=== PATIENT | female | born 1975 | race Caucasian/White ===

== ENCOUNTER 2024-01-15 17:29 | Emergency (ER) | payer SELFPAY ==
[2024-01-15 17:37] VITALS: BP 165/109; PULSE 80; RESP 15; TEMP 36.5; O2SAT 100; BMI 35.2
--- NOTE | 2024-01-15 17:57 | CTR_ITS ---
PROCEDURE INFORMATION: Exam: CT Abdomen And Pelvis Without Contrast Exam date and time: 01/15/2024 6:17 PM Age: 48 years old Clinical indication: Abdominal pain; Patient HX: C/O left flank pain TECHNIQUE: Imaging protocol: Computed tomography of the abdomen and pelvis without contrast. Radiation optimization: All CT scans at this facility use at least one of these dose optimization techniques: automated exposure control; mA and/or kV adjustment per patient size (includes targeted exams where dose is matched to clinical indication); or iterative reconstruction. COMPARISON: No relevant prior studies available. RADIATION DOSE METRICS: Total DLP (mGy-cm): 709.73 FINDINGS: Liver: Normal. No mass. Gallbladder and biliary ducts: Cholelithiasis. Pancreas: Normal. No ductal dilation. Spleen: Normal. No splenomegaly. Adrenal glands: Normal. No mass. Kidneys and ureters: 4 mm nonobstructing calculus in the left kidney. No hydronephrosis. Stomach and bowel: Colonic diverticulosis without acute diverticulitis. No evidence of bowel obstruction. Appendix: No evidence of appendicitis. Intraperitoneal space: Unremarkable. No free air. No significant fluid collection. Vasculature: Mild atherosclerotic calcifications of the abdominal aorta and its branch vessels. No aortic aneurysm. Lymph nodes: Unremarkable. No enlarged lymph nodes. Urinary bladder: Unremarkable as visualized. Reproductive: Complex cystic mass in the pelvis measuring 10.5 x 14.6 x 14.2 cm with thin internal septations. This appears to have an adnexal origin, likely from the left adnexa. However, this structure also abuts the right ovary. There is mass effect on surrounding bowel loops with displacement. Bones/joints: Unremarkable. No acute fracture. Soft tissues: Small fat containing umbilical hernia. CT/CT kidney stone [id number] IMPRESSION: 1. 4 mm nonobstructing left nephrolithiasis. No obstructive uropathy. 2. Complex cystic pelvic mass with thin internal septations likely arises from the left adnexa. Findings are most compatible with a cystic ovarian neoplasm such as a serous cystadenoma. However, further assessment with nonemergent pelvic ultrasound and/or MRI pelvis without and with contrast is recommended to further characterize this lesion. 3. Colonic diverticulosis without acute diverticulitis. 4. Cholelithiasis without CT evidence of acute cholecystitis.
--- NOTE | 2024-01-15 18:01 | ED_ITS ---
HPI - Abdominal Pain 2 General: Chief Complaint: Abdominal Pain Stated Complaint: left side pain Time Seen by Provider: 01/15/24 17:57 History of Present Illness: 48-year-old female comes in today for co mplaints of left flank pain. On exam patient appears nontoxic. Patient denies any chronic medical problems. Patient appears in mild to moderate pain. Patient does report a history of prior renal calculi. Patient reports C-sections and tubal ligation. Related Data Previous Rx's Medication Instructions Recorded ketorolac 10 mg tablet 10 mg PO Q8H PRN pain #10 tabs 01/15/24 Allergies Allergy/AdvReac Type Severity Reaction Status Date / Time acetaminophen [From Vicodin] Allergy ADR-Nausea Verified 01/15/24 17:42 codeine Allergy ADR-Shakine Verified 01/15/24 17:42 ss hydrocodone [From Vicodin] Allergy ADR-Nausea Verified 01/15/24 17:42 Review of Systems 2 General: Reports: 10 or more systems reviewed and unremarkable except in HPI and below Physical Exam 2 Const: COMMON NORMALS: alert HENMT: COMMON NORMALS: normocephalic HEAD & SCALP: normocephalic Neck/C-Spine: COMMON NORMALS: full ROM Resp: COMMON NORMALS: normal respiratory effort and clear to auscultation bilaterally AUSCULTATION: clear to auscultation bilaterally Cardio: COMMON NORMALS: regular rate RATE: regular rate GI: PALPATION: Yes Tenderness to palpation present (GI) Details: LLQ : COMMON NORMALS: Yes no CVA tenderness BLADDER/KIDNEY EXAM: Yes no CVA tenderness Back/Pelvis: COMMON NORMALS: no CVA tenderness and thoracic and lumbar spine normal to inspection Extremity: COMMON NORMALS: full ROM Neuro: SENSORIUM/ORIENTATION: Yes alert Skin: COMMON NORMALS: turgor normal GENERAL SKIN EXAM: turgor normal Course 2 Vital Signs: Vital signs: Vital Signs Temperature 97.7 F 01/15/24 17:37 Pulse Rate 75 01/15/24 21:13 Respiratory Rate 18 01/15/24 21:13 Blood Pressure 169/102 01/15/24 21:13 Pulse Oximetry 100 01/15/24 21:13 Oxygen Delivery Me thod Room Air 01/15/24 21:13 MDM - Abdominal Pain Medical Decision Making 48-year-old female comes in today for complaints of left upper quadrant abdominal pain. On exam patient appears nontoxic. Patient appears in no acute distress. Respirations are even lungs are clear to auscultation. Abdomen soft with some left upper quadrant tenderness. No CVA tenderness. Differential diagnosis includes renal calculi, diverticulitis, constipation, gastritis, colitis. CBC and CMP were unremarkable. Urinalysis was unremarkable. CT of the abdomen pelvis noted some diverticulosis and a large ovarian cystic mass. Reviewed exam with patient with recommendation for treatment for diverticular pain versus pain secondary to ovarian cystic mass. Patient was started on some Toradol to help with her pain. Patient was encouraged drink plenty water and fluids use ice or heat for further pain relief. Case management was requested to help patient follow-up with [facility] for further evaluation of mass on the right ovary. Patient reported understanding of care plan and need for follow-up or return to the ER. Lab Data 01/15/24 18:13 01/15/24 18:13 Labs/Radiology: Radiology Impressions Abdomen/Pelvis CT 01/15/24 17:57 IMPRESSION: 1. 4 mm nonobstructing left nephrolithiasis. No obstructive uropathy. 2. Complex cystic pelvic mass with thin internal septations likely arises from the left adnexa. Findings are most compatible with a cystic ovarian neoplasm such as a serous cystadenoma. However, further assessment with nonemergent pelvic ultrasound and/or MRI pelvis without and with contrast is recommended to further characterize this lesion. 3. Colonic diverticulosis without acute diverticulitis. 4. Cholelithiasis without CT evidence of acute cholecystitis. Laboratory Results WBC 8.54 10^3/uL (3.29-11.43) 01/15/24 18:13 RBC 5.42 10^6/uL (3.85-5.65) 01/15/24 18:13 Hgb 15.20 g/dL (11.27-16.99) 01/15/24 18:13 Hct 45.7 % (36-47) 01/15/24 18:13 MCV 84.3 fl (85-98) L 01/15/24 18:13 MCH 28.0 pg (27-33) 01/15/24 18:13 MCHC 33.3 g/dL (30-55) 01/15/24 18:13 RDW 14.3 % (12.1-15.1) 01/15/24 18:13 Plt Count 286 10^3/cmm (157-399) 01/15/24 18:13 MPV 10.4 fL (7.4-10.4) 01/15/24 18:13 Neut % (Auto) 84.4 % 01/15/24 18:13 Lymph % (Auto) 12.4 % 01/15/24 18:13 [place] % (Auto) 2.0 % 01/15/24 18:13 Eos % (Auto) 0.1 % 01/15/24 18:13 Baso % (Auto) 0.6 % 01/15/24 18:13 Neut # (Auto) 7.21 10^3/uL (1.8-7.7) 01/15/24 18:13 Lymph # (Auto) 1.1 10^3/uL (0.8-4.8) 01/15/24 18:13 [place] # (Auto) 0.2 10^3/uL (0.2-0.9) 01/15/24 18:13 Eos # (Auto) 0.0 10^3/uL (0.0-0.8) 01/15/24 18:13 Baso # (Auto) 0.1 10^3/uL (0.0-0.1) 01/15/24 18:13 Nucleated RBC % (auto) 0 % 01/15/24 18:13 Nucleated RBCs # 0.0 /100WBC 01/15/24 18:13 Sodium 134 mmol/L (136-145) L 01/15/24 18:13 Potassium 4.2 mmol/L (3.5-5.1) 01/15/24 18:13 Chloride 99 mmol/L (98-107) 01/15/24 18:13 Carbon Dioxide 25 mmol/L (22-29) 01/15/24 18:13 Anion Gap 14.2 (5-19) 01/15/24 18:13 BUN 12 mg/dL (6-20) 01/15/24 18:13 Creatinine 0.6 mg/dL (0.5-0.9) 01/15/24 18:13 GFR Calculation 106.7 mL/min (90-130) 01/15/24 18:13 Glucose 111 mg/dL (65-115) 01/15/24 18:13 Calculated Osmolality 278 mOsm/kg (285-295) L 01/15/24 18:13 Calcium 9.3 mg/dL (8.5-10.5) 01/15/24 18:13 Total Bilirubin 0.6 mg/dL (0.15-1.2) 01/15/24 18:13 AST 10 U/L (0-32) 01/15/24 18:13 ALT 14 U/L (0-33) 01/15/24 18:13 Alkaline Phosphatase 116 U/L (35-105) H 01/15/24 18:13 Total Protein 7.4 g/dL (6.6-8.7) 01/15/24 18:13 Albumin 4.3 g/dL (3.5-5.2) 01/15/24 18:13 Globulin 3.1 g/dL (1.3-4.6) 01/15/24 18:13 HCG, Qual Negative (Negative) 01/15/24 18:13 Urine Color Yellow (Yellow) 01/15/24 20:18 Urine Appearance Clear (CLEAR) 01/15/24 20:18 Urine pH 7 (5-7) 01/15/24 20:18 Ur Specific [place] 1.015 (1.005-1.030) 01/15/24 20:18 Urine Protein Trace (Negative) 01/15/24 20:18 Urine Glucose (UA) Norm (Normal) 01/15/24 20:18 Urine Ketones 1+ (Negative) H 01/15/24 20:18 Urine Blood Trace (Negative) H 01/15/24 20:18 Urine Nitrate Negative (Negative) 01/15/24 20:18 Urine Bilirubin Neg (Negative) 01/15/24 20:18 Urine Urobilinogen Norm mg/dL (Negative) 01/15/24 20:18 Ur Leukocyte Esterase Trace (Negative) H 01/15/24 20:18 Urine RBC Rare /hpf (0-2) 01/15/24 20:18 Urine WBC Rare /hpf (0-5) 01/15/24 20:18 Ur Squamous Epith Cells 0-4 /hpf (0-5) H 01/15/24 20:18 Amorphous Sediment Not Reportable 01/15/24 20:18 Urine Bacteria Trace /hpf (NONE) 01/15/24 20:18 All radiology interpretation(s) finalized by discharge Discharge Plan Discharge Patient Disposition: Home Clinical Impression: Abdominal pain Qualifiers: Abdominal location: left upper quadrant Qualified Code(s): R10.12 - Left upper quadrant pain Ovarian cystic mass Qualifiers: Laterality: right Qualified Code(s): N83.201 - Unspecified ovarian cyst, right side Condition: Stable Prescriptions: New ketorolac 10 mg tablet 10 mg PO Q8H PRN (Reason: pain) Qty: 10 0RF Rx Instructions: maximum total duration of 5 days from all oral, intranasal, or parenteral formulations Discharge Orders: Discharge ED (Routine); Ordered 01/15/24 Ordered By: Kamaljit Shipley Referrals: Logan Galicia FNP-C [Family Provider] - Discharge Diet: Usual diet Discharge Activity: Increase activity as tolerated Patient Instructions: Abdominal Pain (ED) Activity Restrictions/Additional Instructions: Home and rest. Use medication as needed for pain. Drink plenty of water and fluids. Use ice or heat for further pain relief. Follow-up with [facility] for further evaluation and treatment. Return to ER for new concerns such as blood in vomit or stool, fever greater than 100.4, or new concerns. Thank you for choosing [facility] for your healthcare needs today. Please realize that you were seen in the emergency department and that we are providing you with an emergency medical screening exam and this may not be a complete and all exclusive of all testing and/or medical workup we may need to determine your element or severity of your illness. It is very important that you follow-up as instructed with your primary care provider or specialist for the additional evaluation and to discuss your medical treatment plan. You may return to the emergency department should you have concerns or if your condition changes or worsens in any way. Coding Level of Care Code ED [employer] for [employer]uentes
[2024-01-15 18:21] LABS: Basophils # 0.1 10^3/uL (0.0-0.1); Basophils % 0.6 %; Eosinophils % 0.1 %; Hematocrit 45.7 % (36-47); Lymphocytes # 1.1 10^3/uL (0.8-4.8); Lymphocytes % 12.4 %; Mean Corpuscular HGB Conc 33.3 g/dL (30-55); Mean Corpuscular Volume 84.3 fl (85-98); Mean Platelet Volume 10.4 fL (7.4-10.4); Monocytes # 0.2 10^3/uL (0.2-0.9); Neutrophils # 7.21 10^3/uL (1.8-7.7); Neutrophils % 84.4 %; Nucleated Red Blood Cells % 0 %; Platelet Count 286 10^3/cmm (157-399); Red Blood Count 5.42 10^6/uL (3.85-5.65); Red Cell Distribution Width 14.3 % (12.1-15.1); White Blood Count 8.54 10^3/uL (3.29-11.43)
[2024-01-15 18:32] LABS: HCG, Serum Qual Negative (Negative)
[2024-01-15 18:35] VITALS: RESP 17; O2SAT 96
[2024-01-15] MEDS: fentaNYL 50 mcg/mL INJ 2mL IVP (18:35)
[2024-01-15] MEDS: ondansetron 2 mg/ML SDV 2 mL 4 MG IVP (18:35)
[2024-01-15 18:37] LABS: Alanine Aminotransferase 14 U/L (0-33); Albumin Level 4.3 g/dL (3.5-5.2); Alkaline Phosphatase 116 U/L (35-105); Anion Gap 14.2 (5-19); Aspartate Amino Transferase 10 U/L (0-32); Blood Urea Nitrogen 12 mg/dL (6-20); Calcium 9.3 mg/dL (8.5-10.5); Carbon Dioxide 25 mmol/L (22-29); Chloride 99 mmol/L (98-107); Creatinine Clr Calc Pharmacy 108.5365; Globulin 3.1 g/dL (1.3-4.6); Glomerular Filtration Rate 106.7 mL/min (90-130); Glucose 111 mg/dL (65-115); Osmolality Calculated 278 mOsm/kg (285-295); Potassium 4.2 mmol/L (3.5-5.1); Sodium 134 mmol/L (136-145); Total Bilirubin 0.6 mg/dL (0.15-1.2); Total Protein 7.4 g/dL (6.6-8.7)
[2024-01-15 20:47] VITALS: BP 169/109; PULSE 75; O2SAT 99
[2024-01-15 21:02] LABS: Bilirubin Urine Neg (Negative); Blood Urine Trace (Negative); Glucose Urine UA Norm (Normal); Ketones Urine 1+ (Negative); Nitrate Urine Negative (Negative); Protein Urine Trace (Negative); Specific Gravity, Urine 1.015 (1.005-1.030); Urine Appearance Clear (CLEAR); Urine Color Yellow (Yellow); Urobilinogen Urine Norm (Negative); pH Urine 7 (5-7)
[2024-01-15 21:03] LABS: Add Urine Microscopic? YES; Bacteria Urine TRACE /hpf; Leukocyte Esterase Urine Trace (Negative); RBC Urine RARE /hpf (0-2); Squamous Epithelial Cell Urine 0-4 /hpf (0-5); UA Manual Slide Review YES; UA Slide Review UA Slide Review Perf; WBC Urine RARE /hpf (0-5)
[2024-01-15] MEDS: ketorolac 30 mg/mL INJ 15 MG IVP (21:09)
[2024-01-15 21:13] VITALS: BP 169/102; PULSE 75; RESP 18; O2SAT 100
[2024-01-15 21:32] VITALS: BP 170/110; PULSE 82; RESP 16; O2SAT 99
--- NOTE | 2024-01-16 08:36 | DCPLANNER ---
messaged [facility] for er f/u
== END 2024-01-15 21:33 | disposition home or self-care (01) ==
PROVIDERS: Emergency Provider Nurse Practitioner Family; Family Provider Nurse Practitioner
DX: R10.12 Left upper quadrant pain (principal); N83.201 Unspecified ovarian cyst, right side
CPT/HCPCS: 74176; 80053; 81001; 84703; 85025; 96374; 96375; 99285; J1885; J2405; J3010